=== PATIENT | female | born 1950 | race Caucasian/White ===

== ENCOUNTER 2022-03-31 06:49 | Day surgery (SDC) | payer MEDICARE, OTHER ==
[~2022-03-31] VITALS: Ht 162.6 cm; Wt 68.4 kg
[~2022-03-31 06:49] MED LIST: CELEBREX 200MG200 MG PO; CINNAMON500 MG PO; COLACE 100100 MG/CAP PO; FISH OIL 1000MG1 CAP PO; FLEXERIL 1010 MG/TAB PO; MULTIPLE VITAMI1 TA5 PO; NORCO 325 MG-51 TAB PO; OS-CAL 500 + D1 TAB PO; PERCOCET 325 MG1 TA2 PO; POTASSIUM PO; SYNTHROID 0.0.025 MG PO
[2022-03-31] MEDS ORDERED: [UNRECOGNIZED DRUG - OTHER] PO (07:42)
[2022-03-31] MEDS ORDERED: VITAMIN FLUSH-F1 CAP PO (07:43)
[2022-03-31] MEDS ORDERED: B12 PO (07:43)
[2022-03-31] MEDS ORDERED: GLUCOSAMINE & C1 CA2 PO (07:44)
[2022-03-31 08:00] VITALS: BP 136/70; PULSE 83; TEMP 98
[2022-03-31 08:35] VITALS: BP 110/59; PULSE 88; TEMP 97.7
--- NOTE | 2022-03-31 08:35 | NUR ---
Pt arrived from procedure and was settled by Bri FERGUSON. Vitals obtained. Pt provided warm muffin, hot coffee and water without ice per request. Call waters within reach on side table. is present.
[2022-03-31 08:50] VITALS: BP 104/63; PULSE 76
--- NOTE | 2022-03-31 08:50 | NUR ---
Vitals obtained. Written report obtained from PHYLLIS Gregory.
[2022-03-31 09:05] VITALS: BP 104/79; PULSE 81
--- NOTE | 2022-03-31 09:05 | NUR ---
Vitals obtained. Pt denies nausea and stomach discomfort. No vomiting. Pt expressed desire to be discharged. Call waters remains within reach.
--- NOTE | 2022-03-31 09:10 | NUR ---
DC instructions and educational material reviewed with the pt and her , both verbalized understanding and the pt signed the related paperwork. IV discontinued. Catheter tip intact. Pressure dressing applied. No redness or swelling noted. Pt denied having questions or concern about DC information, and denied needing assistance changing into personal belongings.
--- NOTE | 2022-03-31 09:30 | NUR ---
Pt dismissed from endo via wheelchair to the pt entrence by Mamie FERGUSON and transferred into the care of her , who is present to drive and has the DC packet.
== END 2022-03-31 09:35 | disposition home or self-care (01) ==
LOC: SDCO 06:49
DX: Z12.11 Encounter for screening for malignant neoplasm of colon (principal); K63.5 Polyp of colon; D12.8 Benign neoplasm of rectum
CPT/HCPCS: J2704; J7030